=== PATIENT | male | born 1990 | race Caucasian/White ===

== ENCOUNTER 2021-03-23 11:27 | Emergency (ER) | payer OTHER ==
[2021-03-23 11:35] VITALS: TEMP 98.5; BMI 24.5
[2021-03-23 14:53] VITALS: BP 131/65; PULSE 65
== END 2021-03-23 14:55 | disposition home or self-care (01) ==
LOC: JER 11:27
DX: F07.81 Postconcussional syndrome (principal)
CPT/HCPCS: 70450-TC; 99284-25

== ENCOUNTER 2024-01-02 12:42 | Emergency (ER) | payer OTHER ==
[2024-01-02 13:07] VITALS: RESP 19; BMI 23.6
[2024-01-02 21:12] VITALS: BP 122/78; PULSE 76; TEMP 97.9
== END 2024-01-02 21:12 | disposition home or self-care (01) ==
LOC: JER 12:42
DX: R20.0 Anesthesia of skin (principal); M51.36 Other intervertebral disc degeneration, lumbar region; R53.1 Weakness
CPT/HCPCS: 70450-TC; 72148-TC; 99284-25